=== PATIENT | male | born 1995 | race Hispanic/Latino ===

== ENCOUNTER 2022-05-15 10:39 | Inpatient (IN) | payer BC, OTHER ==
[~2022-05-15] VITALS: Ht 172.7 cm; Wt 72.6 kg
[~2022-05-15 10:39] MED LIST: GABAPENTIN400 MG PO; MELOXICAM15 MG PO; METHOCARBAMOL750 MG PO; MORPHINE SULFAT15 M1 PO; OXYCODONE-ACET1 EAC3 PO
[2022-05-15 12:00] LABS: BASOPHILS # (AUTO) 0.1 (0.0-0.1); BASOPHILS % 1.4 % (0.0-1.0); EOSINOPHILS # (AUTO) 0.1 (0.0-0.4); EOSINOPHILS % 1.9 % (0.0-6.0); HEMATOCRIT 27.6 % (38.2-49.6); LYMPHOCYTES # (AUTO) 1.4 (1.0-3.2); MEAN CORPUSCULAR HEMOGLOBIN 16.9 pg (28-32); MEAN CORPUSCULAR HGB CONC 25.4 g/dL (31-35); MEAN CORPUSCULAR VOLUME 66.8 fL (81-99); MONOCYTES # (AUTO) 0.4 (0.2-0.8); MONOCYTES % 8.2 % (4.4-11.3); NEUTROPHILS # (AUTO) 3.2 (2.1-6.9); NEUTROPHILS % 61.3 % (38.7-80.0); PLATELET COUNT 316 x10e3/uL (140-360); RED BLOOD COUNT 4.13 x10e6/uL (4.3-5.7); RED CELL DISTRIBUTION WIDTH 20.5 % (11.7-14.4)
[2022-05-15 12:01] LABS: CLARITY,URINE CLEAR (CLEAR); COLOR,URINE YELLOW (YELLOW)
[2022-05-15 12:02] LABS: KETONES,URINE NEGATIVE (NEGATIVE); LEUKOCYTE ESTERASE ,URINE NEGATIVE (NEGATIVE); NITRITE,URINE NEGATIVE (NEGATIVE); PROTEIN,URINE DIPSTICK NEGATIVE (NEGATIVE); URINE UROBILINOGEN 0.2 mg/dL (0.2 - 1)
[2022-05-15 12:05] LABS: BACTERIA,URINE FEW /HPF; EPITHELIAL CELLS,URINE FEW /LPF; RBC,URINE 0-5 /HPF (0-5)
[2022-05-15 12:21] LABS: PROTHROMBIN TIME 14.1 seconds (11.9-14.5)
[2022-05-15 12:22] LABS: PARTIAL THROMBOPLASTIN TIME 34.8 seconds (23.8-35.5)
[2022-05-15 12:31] LABS: ALANINE AMINOTRANSFERASE 42 IU/L (0-55); ALBUMIN 3.8 g/dL (3.5-5.0); ALKALINE PHOSPHATASE 65 IU/L (40-150); ANION GAP 13.8 mmol/L (8-16); BLOOD UREA NITROGEN < 5 mg/dL (7-26); CALCIUM 8.7 mg/dL (8.4-10.2); CARBON DIOXIDE 30 mmol/L (22-29); CHLORIDE 99 mmol/L (98-107); CREATINE KINASE 58 IU/L (30-200); CREATININE, SERUM 0.85 mg/dL (0.72-1.25); GLUCOSE 87 mg/dL (74-118); SODIUM 140 mmol/L (136-145)
[2022-05-15 12:33] LABS: BUN/CREATININE RATIO 6 (6-25); POTASSIUM 2.8 mmol/L (3.5-5.1)
[2022-05-15] MEDS ORDERED: POTASSIUM CHLORIDE 20 MEQ TAB CR PO STA (12:44)
[2022-05-15] MEDS ORDERED: SODIUM CHLORIDE 0.9% 250ML 250 ML IV ONE (12:45)
[2022-05-15] MEDS ORDERED: SODIUM CHLORIDE 0.9% 1000ML 1,000 ML IV SCH (13:00)
[2022-05-15] MEDS ORDERED: ONDANSETRON HCL INJ 2MG/ML 2ML 2 MG/ML VIAL IV PRN (13:00)
[2022-05-15] MEDS ORDERED: ALPRAZOLAM1 MG PO (16:49)
[2022-05-15] MEDS ORDERED: HYDROCODON-ACE1 EAC9 PO (16:49)
[2022-05-15] MEDS ORDERED: BACLOFEN10 MG PO (16:49)
[2022-05-15] MEDS ORDERED: GABAPENTIN300 MG PO (16:49)
[2022-05-15] MEDS ORDERED: OMEPRAZOLE40 MG PO (16:49)
[2022-05-15] MEDS ORDERED: DULOXETINE HCL60 MG PO (16:49)
[2022-05-15] MEDS ORDERED: SODIUM CHLORIDE 0.9% 250ML 250 ML ONE (17:45)
[2022-05-15] MEDS ORDERED: POTASSIUM CHLORIDE 20 MEQ TAB CR PO ONE ×2 (18:00→18:20)
[2022-05-15 21:13] VITALS: BP 119/82
[2022-05-16 00:09] LABS: % IRON SATURATION 2 % (15-50); IRON 11 ug/dL (65-175); TOTAL IRON BINDING CAPACITY 455 ug/dL (261-478); TRANSFERRIN 325 mg/dL (174-364)
[2022-05-16] MEDS ORDERED: FOLIC ACID 1 MG TAB PO SCH (09:00)
== END 2022-05-15 21:18 | disposition left against medical advice (07) | DRG 812 ==
LOC: ER 11:38 → ERHOLD 12:54
PROVIDERS: ADMIT Internal Medicine; ATTEND Internal Medicine
PROC: 30233N1 Transfusion of Nonautologous Red Blood Cells into Peripheral Vein, Percutaneous Approach (ICD-10-PCS; principal; 2022-05-15)
DX: D50.9 Iron deficiency anemia, unspecified (principal); D61.818 Other pancytopenia; E87.6 Hypokalemia; Z89.611 Acquired absence of right leg above knee; K21.9 Gastro-esophageal reflux disease without esophagitis; G54.6 Phantom limb syndrome with pain; Z79.891 Long term (current) use of opiate analgesic; Z20.822 Contact with and (suspected) exposure to COVID-19
CPT/HCPCS: 36415; 71045; 80053; 81001; 82270; 82550; 82553; 82607; 82746; 83540; 83735; 84466; 84484; 85025; 85045; 85610; 85730; 86850; 86900; 86920; 93005; 94799; 99284; J7030; J7050; P9016